=== PATIENT | female | born 1985 | race Caucasian/White ===

== ENCOUNTER → 2020-03-26 12:24 | Outpatient (CLI) | payer MEDICAID | END | disposition home or self-care (01) | LOC: D.MRI 12:24 | PROVIDERS: ATTEND Clinical Nurse Specialist Family Health | DX: M25.562 Pain in left knee (principal) ==

== ENCOUNTER 2020-08-19 10:19 | Emergency (ER) | payer MEDICAID ==
[~2020-08-19] VITALS: Ht 160 cm; Wt 115.9 kg
[2020-08-19 10:30] VITALS: Ht 160 cm; Wt 115.9 kg
[2020-08-19] MEDS ORDERED: TRINTELLIX5 MG PO (10:32)
[2020-08-19] MEDS ORDERED: MICARDIS40 MG PO (10:33)
[2020-08-19] MEDS ORDERED: MOBIC7.5 MG PO (10:33)
[2020-08-19] MEDS ORDERED: ABILIFY10 MG PO (10:33)
[2020-08-19] MEDS ORDERED: SINGULAIR10 MG PO (10:33)
[2020-08-19] MEDS ORDERED: NEXIUM40 MG (10:34)
[2020-08-19] MEDS ORDERED: HYDROCODON-ACE1 EAC7 PO (10:34)
[2020-08-19] MEDS ORDERED: METHOCARBAMOL750 MG NG (10:34)
[2020-08-19] MEDS ORDERED: ZOFRAN4 MG PO (10:35)
[2020-08-19] MEDS ORDERED: [UNRECOGNIZED DRUG - OTHER] (10:39)
[2020-08-19 11:45] LABS: BASOPHILS 0.3 % (0-2); EOSINOPHILS 2.2 % (0-7); HEMATOCRIT 41.9 % (36.0-48.0); HEMOGLOBIN 13.5 g/dL (12-16); IMMATURE GRANULOCYTES 0.2 % (0-5); LYMPHOCYTES 35.5 % (15-50); MCH 27.7 pg (26.0-34.0); MCHC 32.2 g/dL (31.0-37.0); MCV 85.9 fL (80.0-100.0); MEAN PLATELET VOLUME 9.2 fL (7.4-10.4); MONOCYTES 3.7 % (2-11); NEUTROPHILS 58.1 % (40-80); PLATELET COUNT 285 10x3/uL (130-400); RBC 4.88 10x6/uL (4.00-5.40); RDW 13.8 % (11.5-14.5)
[2020-08-19 11:53] LABS: ANION GAP 8.9 mmol/L (8-16); CALCIUM 9.5 mg/dL (8.5-10.1); CARBON DIOXIDE 30.5 mmol/L (21.0-32.0); CREATININE - SERUM 0.9 mg/dL (0.6-1.3); POTASSIUM - SERUM 3.4 mmol/L (3.5-5.1)
[2020-08-19 11:59] LABS: ALBUMIN 4.1 g/dL (3.4-5.0); BILIRUBIN - TOTAL 0.3 mg/dL (0.2-1.3); PROTEIN - SERUM 7.7 g/dL (6.4-8.2)
[2020-08-19] MEDS ORDERED: ELAVIL10 MG PO (15:44)
[2020-08-19] MEDS ORDERED: ULTRAM50 MG PO (15:44)
[2020-08-19 16:27] VITALS: BP 127/84
== END 2020-08-19 16:29 | disposition home or self-care (01) ==
LOC: D.ER 10:19
PROVIDERS: Emergency Medicine
DX: R51.9 Headache, unspecified (principal); I10 Essential (primary) hypertension; K21.9 Gastro-esophageal reflux disease without esophagitis

== ENCOUNTER 2021-04-23 05:07 | Day surgery (SDC) | payer BC ==
[~2021-04-23] VITALS: Ht 160 cm; Wt 117.9 kg
[~2021-04-23 05:07] MED LIST: ABILIFY10 MG PO; ATARAX 25 MG TA25 MG PO; ELAVIL10 MG PO; FLUTICASONE PRO16 GM NASAL; GLUCOSAMINE HC500 MG PO; HYDROCODON-ACE1 EAC7 PO; MELATONIN10 M1 PO; METHOCARBAMOL750 MG NG; MICARDIS40 MG PO; MOBIC7.5 MG PO; NEXIUM40 MG; OMNICEF300 MG PO; SINGULAIR10 MG PO; TRINTELLIX5 MG PO; TUMERIC PO; ULTRAM50 MG PO; ZOFRAN4 MG PO; ZYRTEC10 MG PO; [UNRECOGNIZED DRUG - OTHER]
[2021-04-23 05:33] LABS: BASOPHILS 1.1 % (0-2); EOSINOPHILS 1.9 % (0-7); HEMATOCRIT 40.2 % (36.0-48.0); HEMOGLOBIN 13.4 g/dL (12-16); LYMPHOCYTES 37.9 % (15-50); MCH 28.5 pg (26.0-34.0); MCHC 33.3 g/dL (31.0-37.0); MCV 85.6 fL (80.0-100.0); MEAN PLATELET VOLUME 7.2 fL (7.4-10.4); MONOCYTES 6.2 % (2-11); NEUTROPHILS 52.9 % (40-80); PLATELET COUNT 342 10x3/uL (130-400); RBC 4.69 10x6/uL (4.00-5.40); RDW 15.3 % (11.5-14.5); WBC 7.7 10x3/uL (4.8-10.8)
[2021-04-23 05:38] LABS: CALC OSMOLALITY 280 mosm/kg (275-300); CALCIUM 9.3 mg/dL (8.5-10.1); CARBON DIOXIDE 27.8 mmol/L (21.0-32.0); CHLORIDE - SERUM 103 mmol/L (98-107); CREATININE - SERUM 0.7 mg/dL (0.6-1.3); GLUCOSE 98 mg/dL (74-106); POTASSIUM - SERUM 3.5 mmol/L (3.5-5.1); SODIUM 140 mmol/L (136-145); UREA NITROGEN 17 mg/dL (7-18); eGFR NON AFRICAN AMERICAN > 90 mL/min (90-120)
[2021-04-23 06:22] VITALS: BP 100/63; Ht 160 cm; Wt 117.9 kg
[2021-04-23] MEDS ORDERED: PERCOCET 10-321 EAC1 PO (08:26)
--- NOTE | 2021-04-23 09:01 | NUR ---
PT CRYING. STATES IN PAIN 8.10. GIVEN DILAUDED PER PROTOCOL. PT VITALS STABLE AND WNL.
--- NOTE | 2021-04-23 14:19 | OP ---
PATIENT NAME: DAR LO MEDICAL RECORD: [id number] :83 [facility] AD[facility] DATE: SURGEON: GALO GREENE DO DATE OF OPERATION: 04/23/2021 PROCEDURE PERFORMED: Right fifth metatarsal closed reduction and percutaneous pinning. INDICATIONS: Ms. Lo is a 35-year-old female who had a right fifth metatarsal Coe fracture that she had been dealing with for some time, it had not been healing at all and started to separate more. I had been watching it with serial x-rays. She got to the point where she started dealing with it and really it was at high risk for nonunion. I told her we need to do this closed reduction and percutaneous pinning. She is aware of the risks including damage to the sural nerve, continued pain, malunion, nonunion, fracture and need for further surgery, she signed the consent. SURGEON: Galo Greene DO DESCRIPTION OF PROCEDURE: The patient was taken to the operative suite, laid in the left lateral decubitus position, given general anesthetic and LMA was placed. She was also given 2 grams of Ancef. The right lower extremity was prepped and draped in sterile fashion. Timeout was performed. Everyone was in agreement with the correct side, site, patient, and procedure. I then began by marking out the incision, making a small incision just proximal to the fifth metatarsal base. I then put in a K-wire through x-ray into the fifth metatarsal shaft. The intramedullary canal rather measured to be a 55, 5.5 screw. I then overdrilled with a soft tissue protector and then put in the 5.5 screw where it was just underneath into the intramedullary canal and compressed the fracture nicely. I then removed the instruments. I got AP, lateral, oblique, and everything was in good position. I then injected with 0.25% Marcaine with epinephrine, approximately 10 mL and closed with 4-0 nylon in a horizontal mattress fashion. She was then dressed with Adaptic, 4 x 4s, cast padding, and 4 x 15 splint placed on the posterior foot and secured with an Braxton wrap. She was awakened and taken to recovery in stable condition. BLOOD LOSS: Minimal. COMPLICATIONS: None. TRANSINT:[id number] Voice Confirmation ID: [id number] DOCUMENT ID: [id number] GALO GREENE DO at 1419 CC: [id number] DICTATION DATE: 04/23/21826 METAL ROASTER: 04/23/21913 [facility] 04/23/21 [place] [id number] [place] [id number]
== END 2021-04-23 11:30 | disposition home or self-care (01) ==
LOC: D.OPS 05:07
PROVIDERS: Anesthesiology; ATTEND Orthopaedic Surgery
DX: S92.351A Displaced fracture of fifth metatarsal bone, right foot, initial encounter for closed fracture (principal); X58.XXXA Exposure to other specified factors, initial encounter